=== PATIENT | female | born 1985 | race African-American/Black ===

== ENCOUNTER 2017-08-10 19:19 | Emergency (ER) | payer MEDICAID ==
[~2017-08-10] VITALS: Ht 165.1 cm; Wt 79.0 kg
[2017-08-10 20:45] VITALS: BP 109/73
== END 2017-08-10 23:30 | disposition left against medical advice (07) ==
LOC: ER 23:20
DX: Z53.21 Procedure and treatment not carried out due to patient leaving prior to being seen by health care provider (principal)
CPT/HCPCS: 81025

== ENCOUNTER 2017-08-11 08:39 | Emergency (ER) | payer MEDICAID ==
[~2017-08-11] VITALS: Ht 165.1 cm; Wt 79.0 kg
[2017-08-11 12:51] LABS: CLARITY URINE CLEAR (CLEAR); COLOR URINE YELLOW (YELLOW); GLUCOSE URINE NEGATIVE (NEGATIVE); KETONES URINE NEGATIVE (NEGATIVE); LEUKOCYTE ESTERASE URINE NEGATIVE (NEGATIVE); NITRITE URINE NEGATIVE (NEGATIVE); OCCULT BLOOD URINE NEGATIVE (NEGATIVE); PH URINE 6.5 (4.5-8.0); PROTEIN URINE NEGATIVE (NEGATIVE); SPECIFIC GRAVITY URINE 1.029 (1.005-1.030)
[2017-08-11 13:06] LABS: HCG SCREEN NEGATIVE
[2017-08-11 13:59] VITALS: BP 106/70
== END 2017-08-11 14:01 | disposition home or self-care (01) ==
LOC: ER 11:43
DX: R30.0 Dysuria (principal); Z98.890 Other specified postprocedural states
CPT/HCPCS: 36415; 81003; 84702; 84703; 99284

== ENCOUNTER 2017-08-13 08:36 | Emergency (ER) | payer MEDICAID ==
[~2017-08-13] VITALS: Ht 165.1 cm; Wt 79.0 kg
[2017-08-13 08:52] VITALS: BP 100/80
[2017-08-13 10:18] LABS: BASOPHILS % 0.6 % (0.0-2.0); EOSINOPHILS % 0.9 % (0.0-5.0); HEMATOCRIT. 32.6 % (36.0-48.0); HEMOGLOBIN. 10.4 g/dL (12.0-16.0); LYMPHOCYTES % 20.5 % (20.0-50.0); MEAN CORPUSCULAR HEMOGLOBIN 26.1 pg (28.0-32.0); MEAN CORPUSCULAR VOLUME 81.7 fL (81.0-99.0); MEAN PLATELET VOLUME 8.4 fl (7.4-10.4); MONOCYTES % 5.7 % (2.0-8.0); NEUTROPHILS % 72.3 % (40.0-76.0); PLATELET 361 x1000/uL (130-400); RED BLOOD CELL COUNT 3.98 mill/uL (4.2-5.4); RED CELL DISTRIBUTION WIDTH 15.4 % (11.6-14.6)
[2017-08-13 10:19] LABS: CLARITY URINE CLEAR (CLEAR); COLOR URINE YELLOW (YELLOW); GLUCOSE URINE NEGATIVE (NEGATIVE); KETONES URINE NEGATIVE (NEGATIVE); LEUKOCYTE ESTERASE URINE TRACE (NEGATIVE); NITRITE URINE NEGATIVE (NEGATIVE); OCCULT BLOOD URINE 2+ (NEGATIVE); PROTEIN URINE 2+ (NEGATIVE); SPECIFIC GRAVITY URINE 1.023 (1.005-1.030)
[2017-08-13 10:28] LABS: CARBON DIOXIDE 28 mEq/L (21-32); CHLORIDE 106 mEq/L (98-107)
[2017-08-13 11:12] LABS: *AMPHETAMINES SCREEN URINE NEGATIVE (NEGATIVE); *BARBITURATES SCREEN URINE NEGATIVE (NEGATIVE); *BENZODIAZEPINES SCREEN URINE NEGATIVE (NEGATIVE); CANNABINOID URINE SCREEN NEGATIVE (NEGATIVE); METHADONE URINE SCREEN NEGATIVE (NEGATIVE); OPIATES URINE SCREEN NEGATIVE (NEGATIVE); PHENCYCLIDINE URINE SCREEN NEGATIVE (NEGATIVE)
[2017-08-13 11:17] LABS: *COCAINE SCREEN URINE PRESUMTIVE POSITIVE (NEGATIVE)
[2017-08-13] MEDS ORDERED: SULFAMETHOXAZOLE/TRIMETHOPRIM 800/160MG TABLET PO ONE (14:45)
== END 2017-08-13 15:09 | disposition home or self-care (01) ==
LOC: ER 09:25
DX: N10 Acute pyelonephritis (principal); N39.0 Urinary tract infection, site not specified; D64.9 Anemia, unspecified; N17.0 Acute kidney failure with tubular necrosis; F14.10 Cocaine abuse, uncomplicated; R80.9 Proteinuria, unspecified; R31.9 Hematuria, unspecified; R82.4 Acetonuria; Z98.51 Tubal ligation status; Z98.890 Other specified postprocedural states
CPT/HCPCS: 36415; 71010; 80053; 80305; 81001; 81025; 83036; 85025; 85651; 93005; 99285

== ENCOUNTER 2019-05-13 05:23 | Emergency (ER) | payer MEDICAID ==
[~2019-05-13] VITALS: Ht 165.1 cm; Wt 73.0 kg
[2019-05-13 07:39] LABS: BASOPHILS % 0.5 % (0.0-2.0); EOSINOPHILS % 1.3 % (0.0-5.0); HEMATOCRIT. 31.7 % (36.0-48.0); LYMPHOCYTES % 11.1 % (20.0-50.0); MEAN CORPUSCULAR HEMOGLOBIN 25.2 pg (28.0-32.0); MEAN PLATELET VOLUME 8.7 fl (7.4-10.4); MONOCYTES % 3.1 % (2.0-8.0); PLATELET 286 x1000/uL (130-400); RED BLOOD CELL COUNT 3.96 mill/uL (4.2-5.4); RED CELL DISTRIBUTION WIDTH 17.8 % (11.6-14.6)
[2019-05-13 07:44] LABS: CHLORIDE 111 mEq/L (98-107)
[2019-05-13] MEDS ORDERED: GUAIFENESIN/CODEINE 100-10MG/5ML UDC PO ONE (09:45)
[2019-05-13] MEDS ORDERED: TETRACAINE/BENZOCAINE/BUTAMBEN 20 GM SPRAY MM ONE (09:45)
[2019-05-13] MEDS ORDERED: VISCOUS LIDOCAINE 2% 15 ML UDC MM PRN (09:45)
[2019-05-13 11:06] VITALS: BP 103/64
== END 2019-05-13 11:09 | disposition home or self-care (01) ==
LOC: ER 05:23
DX: R05 Cough (principal); B34.9 Viral infection, unspecified; R07.89 Other chest pain; Z98.890 Other specified postprocedural states
CPT/HCPCS: 36415; 71045; 71250; 87804; 93005; 99284

== ENCOUNTER 2022-10-12 15:50 | Emergency (ER) | payer MEDICAID ==
[~2022-10-12] VITALS: Ht 167.6 cm; Wt 60.0 kg
[2022-10-12 15:53] VITALS: BP 99/61
== END 2022-10-12 22:56 | disposition left against medical advice (07) ==
LOC: ER 15:50
DX: Z53.21 Procedure and treatment not carried out due to patient leaving prior to being seen by health care provider (principal)

== ENCOUNTER 2025-11-17 12:53 | Emergency (ER) | payer OTHER ==
[~2025-11-17] VITALS: Ht 165.1 cm; Wt 59.0 kg
[2025-11-17 12:55] VITALS: O2SAT 100
[2025-11-17 13:27] LABS: BASOPHILS % 0.3 % (0.0-2.0); EOSINOPHILS % 0.4 % (0.0-5.0); HEMATOCRIT. 34.1 % (36.0-48.0); HEMOGLOBIN. 11.0 g/dL (12.0-16.0); LYMPHOCYTES % 26.5 % (20.0-50.0); MEAN PLATELET VOLUME 8.1 fl (7.4-10.4); MONOCYTES % 5.5 % (2.0-8.0); NEUTROPHILS % 67.3 % (40.0-76.0); PLATELET 208 x1000/uL (130-400); RED BLOOD CELL COUNT 3.78 mill/uL (4.2-5.4); RED CELL DISTRIBUTION WIDTH 12.9 % (11.6-14.6)
[2025-11-17 13:48] LABS: CREATININE 0.7 mg/dL (0.6-1.0); UREA NITROGEN BLOOD 11 mg/dL (9-23)
[2025-11-17] MEDS ORDERED: LEVOFLOXACIN 500MG PREMIX 100 ML IV ONE (15:00)
[2025-11-17 15:41] LABS: CREATININE 0.6 mg/dL (0.6-1.0); TROPONIN I HIGH SENSITIVITY < 4 ng/L (3.0-34); UREA NITROGEN BLOOD 14 mg/dL (9-23)
[2025-11-17 15:42] LABS: PROTEIN TOTAL 7.1 g/dL (6.0-8.3)
[2025-11-17 15:43] LABS: ASPARTATE AMINOTRANSFERASE 16 IU/L (<34); BILIRUBIN DIRECT 0.1 mg/dL (<=3.0); BILIRUBIN TOTAL 0.4 mg/dL (0.1-1.0)
[2025-11-17 15:52] LABS: CLARITY URINE CLEAR (CLEAR); COLOR URINE YELLOW (YELLOW); GLUCOSE URINE NEGATIVE (NEGATIVE); KETONES URINE 4+ (NEGATIVE); LEUKOCYTE ESTERASE URINE NEGATIVE (NEGATIVE); NITRITE URINE NEGATIVE (NEGATIVE); OCCULT BLOOD URINE TRACE (NEGATIVE); PH URINE 6.0 (4.5-8.0); PROTEIN URINE 1+ (NEGATIVE); SPECIFIC GRAVITY URINE 1.035 (1.005-1.030); UROBILINOGEN URINE 0.2 E.U./dL (0.2-1.0)
[2025-11-17] MEDS: MORPHINE SULFATE 4 MG/ML INJ (FOR IV/IM USE) IV ONE (15:59)
[2025-11-17] MEDS: METRONIDAZOLE 500 MG PREMIX 100 ML IV ONE (15:59)
[2025-11-17] MEDS: SODIUM CHLORIDE 0.9% 1,000 ML IV ONE (15:59)
[2025-11-17] MEDS: ONDANSETRON HCL 4MG/2ML INJ IV ONE (15:59)
[2025-11-17] MEDS: LEVOFLOXACIN 500MG PREMIX 100 ML IV SCH (17:08)
[2025-11-17 17:32] LABS: BACTERIA URINE 1+; RBC URINE 0-2 /hpf (0-2); SQUAMOUS EPITHELIAL CELL URINE 1+ /lpf (RARE/1+); WBC URINE 0-2 /hpf (0-2)
[2025-11-17] MEDS ORDERED: TOPUD MT (17:56)
[2025-11-17] MEDS ORDERED: PROM25TA13 MT (17:56)
[2025-11-17] MEDS ORDERED: IBUP-1523 MT (17:56)
[2025-11-17] MEDS ORDERED: METR-167 MT (17:56)
[2025-11-17] MEDS ORDERED: HYDR-4001 MT (17:56)
[2025-11-17] MEDS ORDERED: CIPR-263 MT (17:56)
[2025-11-17] MEDS: OXYCODONE HCL/ACETAMINOPHEN 5/325MG TABLET PO ONE (18:52)
[2025-11-17 20:41] VITALS: BP 117/71; PULSE 91; RESP 11; TEMP 37; O2SAT 97
== END 2025-11-17 20:52 | disposition home or self-care (01) ==
LOC: ER 13:59 → CMPBEDREQ 11-18 08:30
DX: K57.32 Diverticulitis of large intestine without perforation or abscess without bleeding (principal); A05.9 Bacterial foodborne intoxication, unspecified
CPT/HCPCS: 99285; 96365; 96375; 96367; 80076; 80048; 81003; 81025; 83690; 85025; 84484; 36415; 74018; 93005; J1956; J3490; J2405; J2270